=== PATIENT | female | born 1940 | race Caucasian/White ===

== ENCOUNTER 2025-01-11 16:23 | Inpatient (IN) | payer OTHER, SELFPAY ==
[2025-01-11 08:57] VITALS: BMI 28.8
[2025-01-11 09:11] VITALS: BP 157/77
[2025-01-11 10:47] LABS: % Basophils 0.2 % (0-2); % Immature Granulocytes 0.3 % (0-0.5); % Lymphocytes 16.1 % (20.5-51.1); % Monocytes 11.3 % (1.7-9.3); % Neutrophils 72.1 % (42.2-75.2); Absolute Monocytes 0.7 10^3/uL (0.1-0.6); Absolute Neutrophils 4.6 10^3/uL (1.4-6.5); Hematocrit 37.9 % (37.0-47.0); Mean Corp Hgb Conc. 34.3 g/dL (33.0-37.0); Mean Corpuscular Hgb 32.5 pg (27.0-31.0); Mean Corpuscular Volume 94.8 fL (81.0-99.0); Nucleated Red Blood Cells % 0 %; Platelet Count 146 10^3/uL (130-400); Red Cell Dist. Width 14.8 % (11.5-14.5); White Blood Cell Count 6.4 10^3/uL (4.8-10.8)
[2025-01-11 11:00] VITALS: BP 134/63
--- NOTE | 2025-01-11 13:59 | ED.GENMED ---
History of Present Illness
<Bonilla Short DO - Last Filed: 01/17/25 14:10>
General
Chief Complaint: Fall
Source: patient
Exam Limitations: none
Time Seen by Provider: 01/11/25 09:02
Nursing documentation reviewed up to this point in time: agreed with
History of Present Illness
History of Present Illness:
84-year-old female presents emergency department due to weakness, she fell in her kitchen last night, and was on the floor until this morning. EMS helped her up and she was able to ambulate with assistance. She arrives covered in urine or stool.
Past History
<Bonilla Short DO - Last Filed: 01/17/25 14:10>
Past History
ED Past Medical History: COPD and HTN
ED Past Surgical History: Appendectomy
Social History
Tobacco: Non-smoker
Alcohol: None
Drug: None
Review of Systems
<Bonilla Short, DO - Last Filed: 01/17/25 14:10>
Review of Systems
Allergies reviewed?: Yes
All Other Systems: Not applicable
Constitutional: Reports no symptoms
EENT: Reports no symptoms
Respiratory: Reports no symptoms
Cardiac: Reports no symptoms
ABD/GI: Reports no symptoms
: Reports no symptoms
Musculoskeletal: Reports no symptoms
Skin: Reports no symptoms
Neurological: Reports weakness
Endocrine: Reports no symptoms
Hematologic/Lymphatic: Reports no symptoms
Psychiatric: Reports no symptoms
Phy Exam
<Bonilla Short DO - Last Filed: 01/17/25 14:10>
Physical Exam
Physical Exam:
Physical Exam
General: no apparent distress, afebrile
Neck: supple. no meningeal signs. normal posterior pharynx
Heart: s1/s2 regular rate and rhythm, no murmur. equal radial
pulses.
HEENT: Pupils equal round reactive to light, EOMI
Lungs: no acute respiratory distress. clear bilaterally
Abdomen: normal bowel sounds. not tender. no CVAT
Neuro: alert and oriented. no focal neurological deficits cranial nerves II through XII intact
Skin: no rash
Psychiatric: well kept. interactive and cooperative
Extremities: no edema. no calf tenderness. negative homans. good distal pulses
Course
<Bonilla Short, DO - Last Filed: 01/17/25 14:10>
Orders/Labs/Results
Orders:
Orders
01/11/25 Breakfast
Sodium, 2 Gram
At Your Request: Limited, Analytical Research Chemist Required
Does patient need a safe tray?: No
01/11/25 09:20
IV Insert/Care/Rem.- Treatment PRN
Urinalysis Reflex To Culture Urgent
Date Specimen was Collected: 01/12/25
Time Specimen was Collected: 02:30
01/11/25 09:21
CT Head W/o Iv Contrast Urgent
Comment:
Reason For Exam: fall, weakness
01/11/25 10:32
Complete Blood Count/With Diff Urgent
01/11/25 14:26
Comprehensive Metabolic Panel Urgent
Creatine Phosphokinase Urgent
01/11/25 14:47
0.9% Sodium Chloride 500 ml [Nss] 500 ml IV BOLUS
01/11/25 16:15
Admit/Transfer Patient As Directed
Co-Sign Provider:
Level of Care: Inpatient admission
Assign to:: Medical/Surgical
Physician / Group: Janine
Diagnosis: Rhabdo
Reason for Hospitalization: IVFs
Expected length of stay greater than two midnights?: Yes
ELOS- Estimated Length of Stay in days: 3
I certify the patient meets the requirements for IP care: Yes
Peripheral Venous Lwr Ext Bilat US [US Periph Venous LOWER Ext Declan] Urgent
Comment:
Reason For Exam: Lower Extremity Edema
01/11/25 16:16
PRN Pain Medication Management As Directed
May give lesser potent ordered pain med per pt: Yes
preference::
Protocol:: Medication orders for pain may be administered in a
manner that supports deferring to patient preference
when the pt is:
- Requesting an ordered lesser potent pain medication.
Least to most potent pain medications are defined
as: acetaminophen < NSAID < tramadol < opioids
(morphine, oxycodone, hydromorphone).
- Requesting a lesser dose of the same medication IF
ORDERED.
- Requesting a less intrusive route of administration
if both routes are prescribed by the provider (PO <
IV).
01/11/25 16:18
Code Status As Directed
Resuscitation Status: Do not resuscitate
Reached after discussion with pt or family/Healthcare POA: Yes
DNR Bracelet Application ONCE
01/11/25 19:48
0.9% Sodium Chloride 1000 ml [Nss] 1,000 ml IV 80 mls/hr
Acetaminophen [Tylenol] 650 mg PO Q4HPRN PRN
Enoxaparin Sodium [Lovenox] 40 mg SC QPM
01/11/25 19:48
Activity As Directed
Activity Level: Out of Bed- Chair
Orthostatic Vital Signs As Directed
Orthostatic VS Frequency: BID
Vital Signs As Directed
Frequency: Per unit guidelines
Weight As Directed
Frequency: Daily
Ot Eval And Treat Routine
Pt Eval And Treat Routine
Activity Level: Out of Bed-Early Mobility
DX Deep Vein Thrombosis Video Routine
01/11/25 20:00
Flecainide [Tambocor] 50 mg PO Q12
01/12/25 06:00
Levothyroxine [Synthroid] 50 mcg PO DAILY @ 0600
01/12/25 07:22
Basic Metabolic Panel IN AM
Complete Blood Count/No Diff IN AM
Creatine Phosphokinase IN AM
01/12/25 08:00
Losartan [Cozaar] 50 mg PO DAILY
Pantoprazole [Protonix] 40 mg PO DAILY
ulerdbxphex-pokhuxhdt-shxdtpkg [Trelegy Ellipta] 1 inh INH R DAILY
Abnormal Lab Results
01/11/25 01/11/25
10:32 14:26
RBC 4.00 L 10^6/uL
(4.20-5.40)
MCH 32.5 H pg
(27.0-31.0)
RDW 14.8 H %
(11.5-14.5)
Absolute Lymphs (auto) 1.0 L 10^3/uL
(1.2-3.4)
Absolute Monos (auto) 0.7 H 10^3/uL
(0.1-0.6)
Lymphocytes % 16.1 L %
(20.5-51.1)
Monocytes % 11.3 H %
(1.7-9.3)
AST 51 H U/L
(14-36)
Creatine Kinase 894 H U/L
(30-135)
Total Protein 8.7 H g/dl
(6.3-8.2)
01/11/25 10:32
01/11/25 14:26
Vital Signs
Initial and Last Documented VS:
Initial Vital Signs
Temp Pulse Resp Pulse Ox
97.6 F 93 16 96
01/11/25 08:57 01/11/25 08:57 01/11/25 08:57 01/11/25 08:57
Last Documented Vital Signs
Temp Pulse Resp BP Pulse Ox
98.5 F 87 18 151/65 98
01/14/25 14:08 01/14/25 14:08 01/14/25 14:08 01/14/25 14:08 01/14/25 14:08
<Ronald Dent MD - Last Filed: 01/11/25 15:32>
Orders/Labs/Results
Orders:
Orders
01/11/25 Breakfast
Sodium, 2 Gram
At Your Request: Limited, Analytical Research Chemist Required
Does patient need a safe tray?: No
01/11/25 09:20
IV Insert/Care/Rem.- Treatment PRN
Urinalysis Reflex To Culture Urgent
Date Specimen was Collected: 01/12/25
Time Specimen was Collected: 02:30
01/11/25 09:21
CT Head W/o Iv Contrast Urgent
Comment:
Reason For Exam: fall, weakness
01/11/25 10:32
Complete Blood Count/With Diff Urgent
01/11/25 14:26
Comprehensive Metabolic Panel Urgent
Creatine Phosphokinase Urgent
01/11/25 14:47
0.9% Sodium Chloride 500 ml [Nss] 500 ml IV BOLUS
01/11/25 16:15
Admit/Transfer Patient As Directed
Co-Sign Provider:
Level of Care: Inpatient admission
Assign to:: Medical/Surgical
Physician / Group: Janine
Diagnosis: Rhabdo
Reason for Hospitalization: IVFs
Expected length of stay greater than two midnights?: Yes
ELOS- Estimated Length of Stay in days: 3
I certify the patient meets the requirements for IP care: Yes
Peripheral Venous Lwr Ext Bilat US [US Periph Venous LOWER Ext Declan] Urgent
Comment:
Reason For Exam: Lower Extremity Edema
01/11/25 16:16
PRN Pain Medication Management As Directed
May give lesser potent ordered pain med per pt: Yes
preference::
Protocol:: Medication orders for pain may be administered in a
manner that supports deferring to patient preference
when the pt is:
- Requesting an ordered lesser potent pain medication.
Least to most potent pain medications are defined
as: acetaminophen < NSAID < tramadol < opioids
(morphine, oxycodone, hydromorphone).
- Requesting a lesser dose of the same medication IF
ORDERED.
- Requesting a less intrusive route of administration
if both routes are prescribed by the provider (PO <
IV).
01/11/25 16:18
Code Status As Directed
Resuscitation Status: Do not resuscitate
Reached after discussion with pt or family/Healthcare POA: Yes
DNR Bracelet Application ONCE
01/11/25 19:48
0.9% Sodium Chloride 1000 ml [Nss] 1,000 ml IV 80 mls/hr
Acetaminophen [Tylenol] 650 mg PO Q4HPRN PRN
Enoxaparin Sodium [Lovenox] 40 mg SC QPM
01/11/25 19:48
Activity As Directed
Activity Level: Out of Bed- Chair
Orthostatic Vital Signs As Directed
Orthostatic VS Frequency: BID
Vital Signs As Directed
Frequency: Per unit guidelines
Weight As Directed
Frequency: Daily
Ot Eval And Treat Routine
Pt Eval And Treat Routine
Activity Level: Out of Bed-Early Mobility
DX Deep Vein Thrombosis Video Routine
01/11/25 20:00
Flecainide [Tambocor] 50 mg PO Q12
01/12/25 06:00
Levothyroxine [Synthroid] 50 mcg PO DAILY @ 0600
01/12/25 07:22
Basic Metabolic Panel IN AM
Complete Blood Count/No Diff IN AM
Creatine Phosphokinase IN AM
01/12/25 08:00
Losartan [Cozaar] 50 mg PO DAILY
Pantoprazole [Protonix] 40 mg PO DAILY
huenkjfasdi-xzfkctujx-cbxegakh [Trelegy Ellipta] 1 inh INH R DAILY
Abnormal Lab Results
01/11/25 01/11/25
10:32 14:26
RBC 4.00 L 10^6/uL
(4.20-5.40)
MCH 32.5 H pg
(27.0-31.0)
RDW 14.8 H %
(11.5-14.5)
Absolute Lymphs (auto) 1.0 L 10^3/uL
(1.2-3.4)
Absolute Monos (auto) 0.7 H 10^3/uL
(0.1-0.6)
Lymphocytes % 16.1 L %
(20.5-51.1)
Monocytes % 11.3 H %
(1.7-9.3)
AST 51 H U/L
(14-36)
Creatine Kinase 894 H U/L
(30-135)
Total Protein 8.7 H g/dl
(6.3-8.2)
01/11/25 10:32
01/11/25 14:26
Vital Signs
Initial and Last Documented VS:
Initial Vital Signs
Temp Pulse Resp Pulse Ox
97.6 F 93 16 96
01/11/25 08:57 01/11/25 08:57 01/11/25 08:57 01/11/25 08:57
Last Documented Vital Signs
Temp Pulse Resp BP Pulse Ox
98.5 F 87 18 151/65 98
01/14/25 14:08 01/14/25 14:08 01/14/25 14:08 01/14/25 14:08 01/14/25 14:08
ivonne;Bonilla Short DO - Last Filed: 01/17/25 14:10>
MDM/Problems Addressed
Differential Diagnosis Includes:
Rhabdomyolysis, hip fracture, intracranial hemorrhage
MDM/Problems Addressed:
84-year-old female with weakness, difficulty walking, fall. Await labs to evaluate for rhabdomyolysis. Multiple hemolysis on lab draws. CT head no signs of intracranial hemorrhage.
<Bonilla Short DO - Last Filed: 01/17/25 14:10>
*Radiology
Radiology exam reviewed: radiology read reviewed (CT head no acute findings)
*Pulse Oximetry
Patient hypoxic: no
*Critical Care Note
Total Time (30-74mins, 75-104mins- exclusive of procedures): Not Applicable
<Ronald Dent MD - Last Filed: 01/11/25 15:32>
Update Note
Update Note:
UPDATE (Ronald Dent MD)
I have seen and evaluated the patient after signout and reviewed all labs and imaging.
Focused HPI: 84-year-old female with history as documented presents to the ER for evaluation after fall. She had a mechanical fall yesterday and was unable to get up on her own. Was on the ground she says for about 15 hours before she was able to
get help. She denies any serious injuries, complains of generalized weakness no other complaints. Typically walks with a walker. Lives independently and [place].
Physical exam: Awake alert not in distress. Hypertensive otherwise normal vitals.
Medical Decision Makin-year-old female presents after fall and prolonged downtime. No serious injuries. CT head negative for any acute pathology. Labs sent off were significant for mild rhabdomyolysis with CPK 894. Fortunately renal
function is acceptable. Urinalysis pending. I had a long discussion with patient and daughter�although she does have mild rhabdomyolysis her renal function is acceptable. She still feels very weak feels that she would benefit from observation in
the hospital prior to disposition. IV fluids have been ordered. Will admit for continued fluids, trend labs. Discussed with hospitalist.
ED Attending Note
<Bonilla Short, DO - Last Filed: 01/17/25 14:10>
-
Portions of this chart may have been created with voice recognition software.� Occasional wrong word or��sound alike� substitutions may have occurred due to the inherent limitations of voice recognition software.
Discharge Plan
Departure
Patient Disposition: Admit
Date of Disposition: 01/11/25
Time of Disposition: 15:32
Admit to doctor: Mely
Presentation/result/management discussed w/ accepting MD/DO: Hospitalist
Patient with high blood pressure during this ER visit?: Yes
Discharge Problem:
Rhabdomyolysis
Interventions
Interventions:
*Risk Screen - Suicide Last Done: 01/11/25 08:57
*General Assessment Last Done: 01/11/25 08:57
*Neglect/Abuse Screening Last Done: 01/11/25 08:57
*ED- Fall Risk Assessment Last Done: 01/11/25 19:33
*ED COVID-19 Vaccine History Last Done: 01/11/25 08:57
*Nursing Disposition Last Done: 01/11/25 21:35
ED-Musculoskeletal Assessment Last Done: 01/11/25 08:57
ED- Neurological Assessment Last Done: 01/11/25 09:13
ED-Skin Assessment Last Done: 01/11/25 16:25
Discharge Date and Time
Discharge Date/Time: 01/11/25 21:36
[2025-01-11 14:45] LABS: ALT (SGPT) 29 U/L (0-35); AST (SGOT) 51 U/L (14-36); Albumin 4.3 g/dl (3.5-5.0); Alkaline Phosphatase 81 U/L (38-126); Blood Urea Nitrogen 17 mg/dl (7-17); Calcium 9.7 mg/dl (8.4-10.2); Carbon Dioxide 24 mmol/L (22-30); Chloride 104 mmol/L (98-107); Creatine Phosphokinase 894 U/L (30-135); Estimated Creatinine Clearance 62 ml/min; Glucose 84 mg/dl (70-99); Potassium 3.5 mmol/L (3.5-5.1); Sodium 144 mmol/L (135-145); Total Bilirubin 0.6 mg/dl (0.2-1.3); Total Protein 8.7 g/dl (6.3-8.2); eGFR > 60.00
[2025-01-11] MEDS: NSS 500 IV (15:02)
--- NOTE | 2025-01-11 16:01 | HPS.HSE ---
Family Physician
-
Family Physician: Sari Robledo
Chief Complaint
-
Found on floor
History of Present Illness
Patient is an 84 y/o female past medical history of paroxysmal atrial fibrillation, essential hypertension, COPD, and hypothyroidism who was found on the floor by her daughter today. Patient's daughter left around 4:30PM yesterday afternoon.
Shortly after that time patient got up to get something to drink. She states her legs got very weak and she lowered herself to the ground. Unfortunately she was unable to get herself up off the floor and she laid on the floor until her daughter
found her this morning. Patient denies any injury during the event.
Medical History
Past Medical History
Past Medical History: Reports Other
Additional Past Medical History:
Paroxysmal Atrial Fibrillation
Essential Hypertension
COPD
Hypothyroidism
Chronic Back Pain
GERD
Past Surgical History: Reports Other
Additional Past Surgical History:
Appendectomy
Spinal Fusion
Social History
Tobacco: Former Smoker
Living: Other (Independent Apartment at [facility])
Family History
Family History: Not pertinent
Allergies / Home Medications
Allergies reflects when Allergies were last updated in [employer].
Home Medications with original date entered in [employer]
Allergy/Medication List:
Allergies
Allergy/AdvReac Type Severity Reaction Status Date / Time
No Known Allergies Allergy Unverified 01/11/25 09:14
Home Medications
flecainide 50 mg tablet 50 mg PO Q12H 01/11/25
fluticasone fur. 100 mcg-umeclid 62.5 mcg-vilant 25 mcg inhalat.powder (Trelegy Ellipta) 1 inh inhalation R DAILY 01/11/25
levalbuterol tartrate 45 mcg/actuation aerosol inhaler (Xopenex HFA) 2 inh inhalation R Q6HPRN PRN SOB 01/11/25
levothyroxine 50 mcg tablet (Synthroid) 50 mcg PO DAILY 01/11/25
losartan 50 mg tablet 50 mg PO DAILY 01/11/25
omeprazole 20 mg capsule,delayed release 20 mg PO DAILY 01/11/25
Review of Systems
-
A 12 point ROS was completed and negative except as noted: Yes
Constitutional: Denies Fever or Chills
Respiratory: Denies Trouble Breathing
Cardiac: Denies Chest Pain or Palpitations
Neurological: Denies Dizzy
Physical Exam
Vital Signs
Vital Signs
Temp Pulse Resp BP Pulse Ox
97.6 F 78 20 134/63 96
01/11/25 08:57 01/11/25 11:15 01/11/25 11:15 01/11/25 11:00 01/11/25 11:15
Physical Exam
General: Comfortable and Conversant
HEENT: Anicteric and Moist mucous membranes
Respiratory: Clear and Non Labored Respirations
Cardiac: S1/S2 and Regular Rhythm
GI: Soft and Non Tender
Rectal: Deferred by Provider
Musculoskeletal: No Clubbing, No Cyanosis and Other (RLE noticeable more edematous than LLE)
Skin: Warm, Dry and Other (Bruising upper extremities)
Neuro: Awake, Alert, Oriented and Nonfocal/grossly intact
Psych: Calm
Laboratory Results
-
01/11/25 10:32
01/11/25 14:26
Laboratory Results
Total Bilirubin 0.6 mg/dl (0.2-1.3) 01/11/25 14:26
AST 51 U/L (14-36) H 01/11/25 14:26
ALT 29 U/L (0-35) 01/11/25 14:26
Alkaline Phosphatase 81 U/L (38-126) 01/11/25 14:26
Data Reviewed
-
Lab Data: Labs Reviewed by me
Old Records: Reviewed
Impression/Plan
-
Rhabdomyolysis
-Continue slow IVFS overnight
-Repeat labs in AM
Bilateral Lower Extremity Edema, Right Greater Than Left
-Check peripheral vascular ultrasound to evaluate for possible DVT
-Daughter notes PCP recently stopped patient's Lasix
Paroxysmal Atrial Fibrillation
-Continue Flecainide
-
Essential Hypertension
-Continue losartan
COPD, no exacerbation
-Continue Trelegy
Hypothyroidism
-Continue levothyroxine
GERD
-Continue Protonix
DVT proph: Lovenox
Code Status: Full Code
--- NOTE | 2025-01-11 17:04 | W.PN.UPDATE ---
Update Note
Progress Note Update
This is an addendum to H&P written by CECI Hernandez
I saw and examined the patient.
The STACKER OPERATOR's note was reviewed and I agree with the note.
Comment:
Ms. Rema Bucio is a 84 yo woman with hx paroxysmal atrial fibrillation, essential HTN, COPD, hypothyroidism who was brought to hospital after found on floor by daughter this morning. Patient's legs felt weak yesterday when she was in kitchen,
she lowered herself to the floor and could not get up. Life alert necklace didn't work.
Triage VS: T 97.6, P 78, RR 20, BP 134/63, SpO2 96%
LABS: WBC 6.4, Hg 13.0, PLT 146, Na 144, K+ 3.5, CO2 24, BUN 17, Cr 0.6, Glucose 84, T. Bili 0.6, AST 51, ALT 29, creatinine kinase [address]
IMPRESSION:
1. No acute intracranial abnormalities appreciated.
2. Mild atrophy and mild chronic small vessel change.
Ambulatory Dysfunction
Mild Rhabdomyolysis with CK 894
-admit to med/surg
Paroxysmal Atrial Fibrillation
-ESCORT VEHICLE DRIVER Flecainide
Hypothyroidism
-ESCORT VEHICLE DRIVER Synthroid
Essential HTN - ESCORT VEHICLE DRIVER Losartan
DVT PPx
DNR
[2025-01-11 19:34] VITALS: BP 115/101
[2025-01-11 19:35] VITALS: BP 148/71
[2025-01-11] MEDS: SYMBICORT 80/4.5 MCG INHALER INH (20:20)
[2025-01-11] MEDS: LOVENOX 40 MG SC (20:26)
[2025-01-11] MEDS: TAMBOCOR 50 MG PO (20:29)
[2025-01-11] MEDS: NSS 1000 IV (20:30)
[2025-01-11] MEDS: TORADOL 10 MG IV (22:45)
[2025-01-12 03:07] LABS: Urine Albumin 2+ (Neg - Trace); Urine Bilirubin Negative (Negative); Urine Character Cloudy (Clear); Urine Color Yellow; Urine Glucose Negative (Negative); Urine Ketone 3+ (Negative); Urine Leukocyte 3+ (Negative); Urine Nitrite Positive (Negative); Urine Occult Blood 3+ (Negative); Urine Urobilinogen 1+ (Neg - 1+)
[2025-01-12 03:22] LABS: Urine Bacteria Many (Negative); Urine Squamous Cell 0-2 /LPF (Few); Urine White Cell 16-20 /HPF (0-5)
[2025-01-12] MEDS: SYNTHROID 50 MCG PO (05:15)
[2025-01-12] MEDS: SPIRIVA RESPIMAT 2.5 MCG 2 PUFF INH (07:19)
[2025-01-12] MEDS: SYMBICORT 80/4.5 MCG INHALER 2 PUFF INH ×2 (07:19→19:29)
[2025-01-12 07:20] VITALS: BP 179/84
[2025-01-12 08:06] LABS: Hematocrit 32.7 % (37.0-47.0); Hemoglobin 11.2 g/dL (12.0-16.0); Mean Corp Hgb Conc. 34.3 g/dL (33.0-37.0); Mean Corpuscular Hgb 32.3 pg (27.0-31.0); Mean Corpuscular Volume 94.2 fL (81.0-99.0); Mean Platelet Volume 9.5 fL (7.4-10.4); Platelet Count 140 10^3/uL (130-400); Red Blood Cell Count 3.47 10^6/uL (4.20-5.40); Red Cell Dist. Width 15.1 % (11.5-14.5); White Blood Cell Count 4.3 10^3/uL (4.8-10.8)
[2025-01-12] MEDS: TAMBOCOR 50 MG PO ×2 (08:35→20:08)
[2025-01-12] MEDS: PROTONIX 40 MG PO (08:35)
[2025-01-12] MEDS: COZAAR 50 MG PO (08:36)
[2025-01-12 09:59] LABS: Creatine Phosphokinase 488 U/L (30-135)
[2025-01-12 10:08] LABS: Blood Urea Nitrogen 16 mg/dl (7-17); Calcium 8.8 mg/dl (8.4-10.2); Carbon Dioxide 21 mmol/L (22-30); Chloride 108 mmol/L (98-107); Estimated Creatinine Clearance 53 ml/min; Glucose 84 mg/dl (70-99); Potassium 3.3 mmol/L (3.5-5.1); Sodium 141 mmol/L (135-145); eGFR > 60.00
--- NOTE | 2025-01-12 10:39 | W.PN.HOSP.TC ---
Today's Communication/Plan
-
b/l hip x-rays
wound care
PT/OT (post x-ray)
Assessment / Plan
Assessment / Plan
Ms. Rema Bucio is a 84 yo woman with hx paroxysmal atrial fibrillation, essential HTN, COPD, hypothyroidism who was brought to hospital after found on floor by daughter this morning. Patient's legs felt weak yesterday when she was in kitchen,
she lowered herself to the floor and could not get up. Life alert necklace didn't work.
HEAD CT
IMPRESSION:
1. No acute intracranial abnormalities appreciated.
2. Mild atrophy and mild chronic small vessel change.
LE US
IMPRESSION:
No evidence of deep venous thrombosis bilaterally.
Subcutaneous edema is present within the lower extremity bilaterally.
Ambulatory Dysfunction
Mild Rhabdomyolysis with CK 894
-admit to med/surg
-s/p IVF
-renal function stable
-bilateral hip x-rays this AM
-wound care
-PT/OT
Paroxysmal Atrial Fibrillation
-INSTRUMENTATION INSTRUCTOR Flecainide
Hypothyroidism
-INSTRUMENTATION INSTRUCTOR Synthroid
Essential HTN - INSTRUMENTATION INSTRUCTOR Losartan
DVT PPx Lovenox
DNR
Anticipated Discharge: 24 - 48 hours
Subjective/Interval History
-
Date of Service: January 12, 2025
denies pain but cannot flex bilateral knees
Objective Data
-
Labs:
Laboratory Results
01/12/25
07:22
WBC 4.3 L
Hgb 11.2 L
Hct 32.7 L
Plt Count 140
Sodium 141
Potassium 3.3 L
Chloride 108 H
Carbon Dioxide 21 L
BUN 16
Creatinine 0.7
Glucose 84
Calcium 8.8
Vital Signs:
Vital Signs
Temp Pulse Resp BP Pulse Ox
98.0 F 76 16 179/84 96
01/12/25 07:20 01/12/25 07:21 01/12/25 07:21 01/12/25 07:20 01/12/25 07:21
I&O
01/11/25 01/12/25 01/13/25
06:59 06:59 06:59
Intake Total 480 / 480
Balance 480 / 480
Review of Systems
-
History Source: Patient
All other systems: Reviewed and negative
Physical Exam
-
General: No Apparent Distress and Conversant
HEENT: PERRLA
Respiratory: Clear to Auscultation; Negative Wheezes
Cardiac: Regular Rhythm and S1/S2
GI: Soft and Nontender
Musculoskeletal: No Edema and Other (difficulty with flexion b/l hips/knee )
Skin: Warm, Dry and Other (skin breakdown along toes)
Neuro: AO x 3
Psych: Calm
Data Reviewed
-
Diagnostic Radiology: Report Reviewed by me
Labs: Labs Reviewed by me
--- NOTE | 2025-01-12 11:16 | WOUNDNOTE ---
DORSAL 2-3RD TOES B/L
--- NOTE | 2025-01-12 11:20 | WOUNDNOTE ---
WON RN NOTE: Asked to take pictures of skin s/p fall and found face down for over 16 hrs. Admitted with mild Rhabdomyolysis. PMH: HTN, COPD and [id number], lives at [facility] by self. Both feet spontaneously keep turning in, nurse had to hold legs apart
for picture, Dr. Mehta at bedside and aware. B/L 2nd and 3rd toes with thin tripp abrasions no drainage. R dorsal foot with some bruising along with knees. Elbows with dry abrasions, patient using elbows to try and sit up. Recommend skin prep to all
abrasions, can apply foams if start to drain. Nurse Pat made aware, will follow as needed.
--- NOTE | 2025-01-12 11:21 | WOUNDNOTE ---
WON RN NOTE: Asked to take pictures of skin s/p fall and found face down for over 16 hrs. Admitted with mild Rhabdomyolysis. PMH: HTN, COPD and IGIUGIG, lives at [facility] by self. Both feet spontaneously keep turning in, nurse had to hold legs apart
for picture, Dr. Mehta at bedside and aware. B/L 2nd and 3rd toes with thin tripp abrasions no drainage. R dorsal foot with some bruising along with knees. Elbows with dry abrasions, patient using elbows to try and sit up. Recommend skin prep to all
abrasions, can apply foams if start to drain. Patient turned with 2 assist, sacrum and heels are intact. Nurse Pat made aware, will follow as needed.
[2025-01-12] MEDS: KCL 40 MEQ PO (11:56)
[2025-01-12] MEDS: MOTRIN 400 MG PO ×2 (11:56→18:07)
[2025-01-12] MEDS: DESENEX/MITRAZOL/ZEASORB 1 APPLIC TOPICAL ×2 (11:57→20:10)
--- NOTE | 2025-01-12 15:11 | CM ---
Met with patient to obtain information for assessment. Patient stated that she lives alone at an apartment at [facility]. She described herself as independent with all of her bathing, dressing, ADLs and personal care. She can do nail polish brush machine feeder,
laundry, cooking and cleaning. She uses a walker. She has never been to a SNF, she has never had VN services. She has no DME besides the walker. Patient has a prescription plan and uses, [facility] at [facility] for all of her medications. Her PCP is,
Sari Robledo.
Patient would like to return home when she is medically stable. Her daughter is supportive and lives close.
Plan: Case management will continue to follow and assist with discharge planning. Back to [facility] when cleared for discharge.
[2025-01-12 15:24] VITALS: BP 141/94
[2025-01-12 15:59] VITALS: BP 141/94; PULSE 100
[2025-01-12 16:08] VITALS: BP 141/94; O2SAT 100
[2025-01-12] MEDS: LOVENOX 40 MG SC (16:38)
[2025-01-12 23:38] VITALS: BP 104/85
[2025-01-13] MEDS: SYNTHROID 50 MCG PO (05:13)
[2025-01-13] MEDS: MOTRIN 400 MG PO ×2 (06:25→20:11)
[2025-01-13] MEDS: SPIRIVA RESPIMAT 2.5 MCG 2 PUFF INH (08:02)
[2025-01-13] MEDS: SYMBICORT 80/4.5 MCG INHALER 2 PUFF INH ×2 (08:03→19:22)
[2025-01-13 08:21] VITALS: BP 198/97
[2025-01-13] MEDS: PROTONIX 40 MG PO (09:34)
[2025-01-13] MEDS: TAMBOCOR 50 MG PO ×2 (09:34→20:11)
[2025-01-13] MEDS: DESENEX/MITRAZOL/ZEASORB 1 APPLIC TOPICAL ×2 (09:34→20:12)
[2025-01-13] MEDS: COZAAR 50 MG PO (09:34)
--- NOTE | 2025-01-13 11:39 | W.PN.HOSP.TC ---
Today's Communication/Plan
-
dispo planning
Assessment / Plan
Assessment / Plan
Ms. Rema Bucio is a 84 yo woman with hx paroxysmal atrial fibrillation, essential HTN, COPD, hypothyroidism who was brought to hospital after found on floor by daughter this morning. Patient's legs felt weak yesterday when she was in kitchen,
she lowered herself to the floor and could not get up. Life alert necklace didn't work.
HEAD CT
IMPRESSION:
1. No acute intracranial abnormalities appreciated.
2. Mild atrophy and mild chronic small vessel change.
LE US
IMPRESSION:
No evidence of deep venous thrombosis bilaterally.
Subcutaneous edema is present within the lower extremity bilaterally.
Hip X-Ray
FINDINGS and IMPRESSION:
There is likely mild diffuse osteopenia.
There are no findings to confirm recent cortical fracture or dislocation.
Some osseous degenerative changes are noted.
Ambulatory Dysfunction
Mild Rhabdomyolysis with CK 894
-admit to med/surg
-s/p IVF
-renal function stable
-bilateral hip x-rays without fracture
-wound care
-PT/OT --> SNF recommended
Paroxysmal Atrial Fibrillation
-PHP DEVELOPER Flecainide
Hypothyroidism
-PHP DEVELOPER Synthroid
Essential HTN - PHP DEVELOPER Losartan
DVT PPx Lovenox
DNR
Anticipated Discharge: Within 24 hours
Subjective/Interval History
-
Date of Service: January 13, 2025
feeling well
ready to go to rehab
Objective Data
-
Vital Signs:
Vital Signs
Temp Pulse Resp BP Pulse Ox
98.1 F 83 18 164/75 96
01/13/25 08:21 01/13/25 09:34 01/13/25 08:21 01/13/25 09:34 01/13/25 09:35
I&O
01/12/25 01/13/25 01/14/25
06:59 06:59 06:59
Intake Total 480 / 480 480 / 480
Output Total 200 / 200
Balance 480 / 480 280 / 280
Review of Systems
-
History Source: Patient
All other systems: Reviewed and negative
Physical Exam
-
General: No Apparent Distress and Conversant
HEENT: PERRLA
Respiratory: Clear to Auscultation; Negative Wheezes
Cardiac: Regular Rhythm and S1/S2
GI: Soft and Nontender
Musculoskeletal: No Edema and Other (difficulty with flexion b/l hips/knee )
Skin: Warm, Dry and Other (skin breakdown along toes)
Neuro: AO x 3
Psych: Calm
Data Reviewed
-
Diagnostic Radiology: Report Reviewed by me
Labs: Labs Reviewed by me
--- NOTE | 2025-01-13 12:23 | CM ---
Addendum entered by LUISITO Fabian 01/13/25 13:46:
Received return call from Amita in admissions at [facility] who stated that she can take patient tomorrow morning in the am. Attending updated.
Original Note:
Spoke with attending who stated that patient is medically cleared for discharge. PT is indicating SNF. Placed a call to Amita at the [facility] (SNF). Advised that patient is medically cleared for discharge and she needs SNF.
Amita stated that she was going to explore bed availability for today and will return call to CM.
Plan: Case management will continue to follow and assist with discharge planning. SNF. Patient medically stable for discharge.
[2025-01-13 15:38] VITALS: BP 182/100
[2025-01-13 15:50] VITALS: BP 182/100; PULSE 89
[2025-01-13 15:51] VITALS: BP 189/100; PULSE 89
[2025-01-13] MEDS: LOVENOX 40 MG SC (17:21)
[2025-01-13 18:13] VITALS: BP 166/76
[2025-01-14] MEDS: SYNTHROID 50 MCG PO (05:07)
[2025-01-14] MEDS: SYMBICORT 80/4.5 MCG INHALER 2 PUFF INH (07:21)
[2025-01-14] MEDS: SPIRIVA RESPIMAT 2.5 MCG 2 PUFF INH (07:21)
[2025-01-14 07:30] VITALS: BP 150/61
[2025-01-14] MEDS: TAMBOCOR 50 MG PO (09:23)
[2025-01-14] MEDS: PROTONIX 40 MG PO (09:23)
[2025-01-14] MEDS: DESENEX/MITRAZOL/ZEASORB 1 APPLIC TOPICAL (09:23)
[2025-01-14] MEDS: COZAAR 50 MG PO (09:23)
--- NOTE | 2025-01-14 10:34 | W.PN.HOSP.TC ---
Today's Communication/Plan
-
OK for DC today
Assessment / Plan
Assessment / Plan
Ms. Rema Bucio is a 84 yo woman with hx paroxysmal atrial fibrillation, essential HTN, COPD, hypothyroidism who was brought to hospital after found on floor by daughter this morning. Patient's legs felt weak yesterday when she was in kitchen,
she lowered herself to the floor and could not get up. Life alert necklace didn't work.
HEAD CT
IMPRESSION:
1. No acute intracranial abnormalities appreciated.
2. Mild atrophy and mild chronic small vessel change.
LE US
IMPRESSION:
No evidence of deep venous thrombosis bilaterally.
Subcutaneous edema is present within the lower extremity bilaterally.
Hip X-Ray
FINDINGS and IMPRESSION:
There is likely mild diffuse osteopenia.
There are no findings to confirm recent cortical fracture or dislocation.
Some osseous degenerative changes are noted.
Ambulatory Dysfunction
Mild Rhabdomyolysis with CK 894
-admitted to med/surg
-s/p IVF
-renal function stable
-bilateral hip x-rays without fracture
-wound care
-PT/OT --> SNF recommended - OK for DC today
Paroxysmal Atrial Fibrillation
-PRIMER CHARGER Flecainide
Hypothyroidism
-PRIMER CHARGER Synthroid
Essential HTN - PRIMER CHARGER Losartan
DVT PPx Lovenox
DNR
Anticipated Discharge: Today
Subjective/Interval History
-
Date of Service: January 14, 2025
feeling well
feels ready to leave the hospital
Objective Data
-
Vital Signs:
Vital Signs
Temp Pulse Resp BP Pulse Ox
98.1 F 90 18 150/61 97
01/14/25 07:30 01/14/25 09:23 01/14/25 07:30 01/14/25 09:23 04/17/25 07:30
I&O
01/13/25 01/14/25 01/15/25
06:59 06:59 06:59
Intake Total 480 / 480
Output Total 200 / 200
Balance 280 / 280
Review of Systems
-
History Source: Patient
All other systems: Reviewed and negative
Physical Exam
-
General: No Apparent Distress and Conversant
HEENT: PERRLA
Respiratory: Clear to Auscultation; Negative Wheezes
Cardiac: Regular Rhythm and S1/S2
GI: Soft and Nontender
Musculoskeletal: No Edema
Skin: Warm, Dry and Other (skin breakdown along toes)
Neuro: AO x 3
Psych: Calm
Data Reviewed
-
Diagnostic Radiology: Report Reviewed by me
Labs: Labs Reviewed by me
--- NOTE | 2025-01-14 10:39 | W.DS.TRANS ---
DC Summary - Duty Manager
-
Discharge Instructions:
Discharge Diagnosis/Procedures mild rhabdomyolysis
Diet Regular
Activity As tolerated
Driving Restrictions No driving
Bathing Restrictions None
Other Services PT,OT
Instructions:
Stand-Alone Forms:
Changes to Home Medications: Yes
Discharge Medications:
DC Medications w/original date entered in [facility]
flecainide 50 mg tablet 50 mg PO Q12H ARRYTHMIA 01/11/25
fluticasone fur. 100 mcg-umeclid 62.5 mcg-vilant 25 mcg inhalat.powder (Trelegy Ellipta) 1 inh inhalation R DAILY Lung/Breathing Issues 01/11/25
levalbuterol tartrate 45 mcg/actuation aerosol inhaler (Xopenex HFA) 2 inh inhalation R Q6HPRN PRN SOB 01/11/25
levothyroxine 50 mcg tablet (Synthroid) 50 mcg PO DAILY Thyroid 01/11/25
losartan 50 mg tablet 50 mg PO DAILY Blood Pressure 01/11/25
omeprazole 20 mg capsule,delayed release 20 mg PO DAILY GERD 01/11/25
miconazole nitrate 2 % topical powder (Miconazorb AF) 1 applic topical BID #85 grams 01/14/25
Home Medication Changes
addition of miconazole
Pending Results: No
--- NOTE | 2025-01-14 11:42 | CM ---
Addendum entered by LUISITO Fabian 01/14/25 14:12:
# For report [phone] fax [phone]
Report # given to RN. Fax given to [facility] community service technician.
Original Note:
Spoke with attending who stated that patient is medically stable. Spoke with Amita in admissions at the [facility] who confirmed bed availability for patient. She signed IMM, it was reviewed and is on chart. Medical necessity and transfer sheet
completed and provided to [facility] community service technician who arranged for transportation. Transport to [facility] at 15:00. Patient stated that she will order lunch before she goes.
Plan: Case management will continue to follow and assist with discharge planning. SNF
[2025-01-14 11:59] LABS: COVID-19 Antigen Positive (Negative)
--- NOTE | 2025-01-14 12:45 | W.DCSUMMARY ---
Discharge Summary
Discharge Data
Date of Admission: 01/11/25
Date of Discharge: 01/14/25
-
Pending Results: No
Hospital Course
Discharging Physician : Dr. Cindi Mehta
Disposition : SNF
Primary care physician : Dr. Sari Robledo
Principal Discharge diagnosis : Ambulatory Dysfunction, COVID-19 (diagnosed on discharge), mild rhabdomyolysis
Hospital Course :
Ms. Rema Bucio is a 84 yo woman with hx paroxysmal atrial fibrillation, essential HTN, COPD, hypothyroidism who was brought to hospital after found on floor by daughter this morning. Patient's legs felt weak yesterday when she was in kitchen,
she lowered herself to the floor and could not get up. Life alert necklace didn't work. Triage vitals stable. Labs with stable renal function, creatinine kinase 894. Bilateral hip x-ray without fracture.
She was admitted to medicine and given gentle IVF; renal function remained stable. She worked with PT and SNF recommended. She was found to have COVID-19 and will be in isolation precautions at SNF.
Time spent on discharge was 31 minutes.
Important imaging findings :
Procedure findings :
Discharge Plan
-
Patient Disposition: [facility]SNF
Discharge Diagnosis/Procedures: mild rhabdomyolysis
Diet: Regular
Activity: As tolerated
Driving Restrictions: No driving
Bathing Restrictions: None
Other Services: PT and OT
Referrals:
Sari Robledo MD [Family Provider] - in less than 1 week
Prescriptions:
New
miconazole nitrate [Miconazorb AF] 2 % Powder
1 applic topical BID Qty: 85 0RF
Continued
levothyroxine [Synthroid] 50 mcg Tablet
50 mcg PO DAILY
losartan 50 mg Tablet
50 mg PO DAILY
flecainide 50 mg Tablet
50 mg PO Q12H
omeprazole 20 mg Capsule,Delayed Release(Dr/Ec)
20 mg PO DAILY
levalbuterol tartrate [Xopenex HFA] 45 mcg/actuation Hfa Aerosol Inhaler
2 inh INHALATION R Q6HPRN PRN (Reason: SOB)
Trelegy Ellipta 100-62.5-25 mcg Blister With Device
1 inh INHALATION R DAILY
Discharge Orders:
Discharge Patient (As Directed); Ordered 01/14/25
Ordered By: Cindi Mehta
Discharge Date and Time
Print Language: PASHTO
[2025-01-14 14:08] VITALS: BP 151/65
== END 2025-01-14 15:20 | DRG 557 ==
LOC: 4 EAST ACU 16:23
PROVIDERS: Physician Assistant Medical; ADMITTING PHYSICIAN Internal Medicine; ATTENDING PHYSICIAN Student in an Organized Health Care Education/Training Program; EMERGENCY PHYSICIAN Emergency Medicine; FAMILY PHYSICIAN Internal Medicine Geriatric Medicine
DX: M62.82 Rhabdomyolysis (principal); U07.1 COVID-19; Z87.891 Personal history of nicotine dependence; I48.0 Paroxysmal atrial fibrillation; E03.9 Hypothyroidism, unspecified; Z66 Do not resuscitate; I10 Essential (primary) hypertension
CPT/HCPCS: 70450; 73522; 80048; 80053; 81003; 81015; 82550; 85025; 85027; 87086; 87811; 93005; 93970; 94640; 96360; 97112; 97163; 97167; 97530; 97535; 99285